=== PATIENT | female | born 1985 | race African-American/Black ===

== ENCOUNTER 2018-10-02 17:17 | Emergency (ER) | payer SELFPAY ==
[~2018-10-02] VITALS: Ht 165.1 cm; Wt 63.5 kg
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
[2018-10-02 17:44] VITALS: BP 145/86
[2018-10-02] MEDS ORDERED: NKM (17:57)
--- NOTE | 2018-10-02 18:12 | NUR ---
ED Nurse Note: Pt went down to CT
--- NOTE | 2018-10-02 18:31 | NUR ---
ED Nurse Note: Pt came back from CT.
--- NOTE | 2018-10-02 19:06 | NUR ---
HAND-OFF: Report given to LENA Cox.
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
[2018-10-02] MEDS ORDERED: ROBAXIN500 MG PO (19:09)
[2018-10-02] MEDS ORDERED: TYLENOL EXTRA500 MG ORAL (19:09)
[2018-10-02 19:25] VITALS: BP 128/85
--- NOTE | 2018-10-02 19:25 | NUR ---
ED Nurse Note: Patient is being discharged from ED alert and oriented x4, ambulatory with a steady gait, VSS. patient acknowledged the need to follow up with PMD within a week if symptoms dont improve, Id band removed, prescription in hand and all belongings sent home with patient
--- NOTE | 2018-10-03 09:29 | Diagnostic Imaging Report ---
Indication: Headache. Head trauma. Slurred speech Technique: Contiguous 5 mm thick transaxial imaging of the head obtained in a Siemens Sensation [address] scanner. Soft tissue and bone windows generated. Automatic Exposure Control was utilized. Total Dose length Product (DLP): 1354.[address] Dose Index Volume (CTDIvol): 70.38 mGy Comparison: none Findings: The size and configuration of the cortical sulci, basal cisterns, and ventricles are within normal limits for age. There is no mass effect, midline shift, or edema identified. There is no evidence of acute hemorrhage or abnormal intra-axial or extra-axial fluid collections. The bones and soft tissues are unremarkable. Impression: No mass effect, edema or acute bleed. [facility] has communicated the preliminary results to the Emergency Department. Their findings are largely concordant with this report. The CT scanner at [facility] is accredited by the [employer] and the scans are performed using dose optimization techniques as appropriate to a performed exam including Automatic Exposure control.
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
== END 2018-10-02 19:25 | disposition home or self-care (01) ==
LOC: EMR 17:58 → EDBD 17:58 → EMR 19:25
DX: M62.830 Muscle spasm of back (principal); M62.838 Other muscle spasm; F07.81 Postconcussional syndrome; M54.2 Cervicalgia; V43.52XA Car driver injured in collision with other type car in traffic accident, initial encounter; Y92.488 Other paved roadways as the place of occurrence of the external cause
CPT/HCPCS: 70450; 99284